=== PATIENT | female | born 1995 | race American Indian/Alaskan Native ===

== ENCOUNTER 2017-08-06 13:11 | Emergency (ER) | payer OTHER ==
[2017-08-06 13:42] VITALS: BP 143/75
--- NOTE | 2017-08-06 15:04 | Emergency Department Report ---
Chief Complaint: Abdominal Pain Stated Complaint: [place]/ABD PAIN Time Seen by Provider: 08/06/17 14:57 - HPI History of Present Illness: PT c/o headaches and abd pain x 1 week LMP- irregular - ROS Review of Systems: + nausea + vaginal spotting on Saturday - vomiting - dysuria - Exam Vital Signs: Vital Signs 08/06/17 13:38 Temperature 98 F Pulse Rate 83 Respiratory 20 Rate Blood Pressure 143/75 O2 Sat by Pulse 99 Oximetry Physical Exam: morbidly obese female alert and appropriate gcs 15 abd soft, + epigastric tenderness MSE screening note: Focused history and physical exam performed. Due to findings the following was ordered: labs ED Disposition for MSE Condition: Stable Instructions: Abdominal Pain (ED) Referrals: PRIMARY CARE, [Primary Care Provider] - 3-5 Days
[2017-08-06 15:21] LABS: Bilirubin,Urine NEG (Negative); Blood,Urine NEG (Negative); Ketones,Urine NEG (Negative); Leukocyte Esterase,Urine NEG (Negative); Nitrite,Urine NEG (Negative); Protein,Urine <15 mg/dL mg/dL (Negative); Urobilinogen,Urine < 2.0 mg/dL (<2.0)
[2017-08-06 16:04] LABS: Basophils % (Auto) 0.1 % (0.0-1.8); Eosinophils % (Auto) 2.1 % (0.0-4.3); Hematocrit 34.9 % (30.3-42.9); Mean Corpuscular HGB Conc 32 % (30-34); Mean Corpuscular Volume 72 fl (79-97); Platelet Count 303 K/mm3 (140-440); Red Blood Count 4.86 M/mm3 (3.65-5.03); Red Cell Distribution Width 19.5 % (13.2-15.2); White Blood Count 14.2 K/mm3 (4.5-11.0)
[2017-08-06 16:05] LABS: Alanine Aminotransferase 10 units/L (7-56); Albumin/Globulin Ratio 1.2 %; Alkaline Phosphatase 63 units/L (35-129); Anion Gap 14 mmol/L; BUN/Creatinine Ratio 20; Blood Urea Nitrogen 12 mg/dL (7-17); Calcium 9.4 mg/dL (8.4-10.2); Carbon Dioxide 28 mmol/L (22-30); Chloride 100.3 mmol/L (98-107); Glucose 104 mg/dL (65-100); Lipase 21 units/L (13-60); Mean Corpuscular Hemoglobin 23 pg (28-32); Potassium 4.3 mmol/L (3.6-5.0); Sodium 138 mmol/L (137-145); Total Protein 7.3 g/dL (6.3-8.2)
== END 2017-08-06 21:19 | disposition left against medical advice (07) ==
LOC: ED 13:11
DX: R51 Headache (principal); Z53.21 Procedure and treatment not carried out due to patient leaving prior to being seen by health care provider
CPT/HCPCS: 36415; 80053; 81001; 83690; 84703; 85025